=== PATIENT | female | born 1975 | race Two or more races ===

== ENCOUNTER 2017-04-11 18:32 | Emergency (ER) | payer SELFPAY, MEDICAID ==
[2017-04-12 00:28] LABS: KETONE, URINE AUTO RFX NEGATIVE (NEGATIVE); LEUKOCYTE ESTERASE UR AUTO RFX NEGATIVE (NEGATIVE); MUCUS, URINE RFX SMALL (NEGATIVE); NITRITE, URINE AUTO RFX NEGATIVE (NEGATIVE); RBC, URINE AUTO RFX 22 /HPF (0-3); SPECIFIC GRAVITY UR AUTO RFX 1.024 (1.002-1.035); SQUAM EPITHELIAL CELL UR AURFX 1 /HPF (0-6); WBC, URINE AUTO RFX 3 /HPF (0-3)
[2017-04-12 00:34] LABS: CONTROL LINE UCG INT CTR LINE PRESENT; URINE PREG TEST NEGATIVE (NEGATIVE)
[2017-04-12] MEDS: PERCOCET 5MG/325MG TAB PO (00:45)
[2017-04-12] MEDS: CYCLOBENZAPRINE 10 MG TAB PO (00:45)
[2017-04-12] MEDS: BACTRIM 160MG/800MG DS TAB PO (01:08)
== END 2017-04-12 01:10 | disposition home or self-care (01) ==
LOC: M ED 04-12 01:10
DX: M54.5 Low back pain (principal); N39.0 Urinary tract infection, site not specified; Z87.891 Personal history of nicotine dependence
CPT/HCPCS: 72100